=== PATIENT | male | born 2000 | race African-American/Black ===

== ENCOUNTER 2020-01-25 15:21 | Emergency (ER) | payer SELFPAY ==
[~2020-01-25] VITALS: Ht 195.6 cm; Wt 104.0 kg
[2020-01-25 15:59] VITALS: BP 133/118
[2020-01-25] MEDS ORDERED: IBUPROFEN 200 MG TABLET. PO ONE (16:00)
[2020-01-25] MEDS ORDERED: IBUP-1007 PO (16:10)
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
== END 2020-01-25 16:45 | disposition home or self-care (01) ==
LOC: ER 15:21
DX: G89.11 Acute pain due to trauma (principal); M25.512 Pain in left shoulder; V89.2XXA Person injured in unspecified motor-vehicle accident, traffic, initial encounter; Y93.89 Activity, other specified; Y92.89 Other specified places as the place of occurrence of the external cause; Y99.8 Other external cause status
CPT/HCPCS: 73030; 99283